=== PATIENT | female | born 1955 | race American Indian/Alaskan Native ===

== ENCOUNTER 2017-04-16 13:47 | Emergency (ER) | payer MEDICARE ==
[2017-04-16 13:47] VITALS: BMI 31.2
--- NOTE | 2017-04-16 14:47 | RAD ---
HISTORY: cough with blood streaked sputum COMPARISON: None available. TECHNIQUE: Chest PA and lateral FINDINGS: Examination limited by habitus. LUNGS: No focal consolidation. Please note that chest x-ray has limited sensitivity for the detection of pulmonary masses. PLEURA: No significant pleural effusion identified. No definite pneumothorax. CARDIOVASCULAR: Median sternotomy wires. Heart size appears within normal limits. Ectatic aorta. Prosthetic cardiac valve. OSSEOUS STRUCTURES: Degenerative changes. VISUALIZED UPPER ABDOMEN: Unremarkable. OTHER FINDINGS: None. IMPRESSION: No focal consolidation, significant pleural effusion, or definite pneumothorax identified.
[2017-04-16 14:57] LABS: BASO % 0.6 % (0.0-2.0); EOS % 0.4 % (0.0-4.0); HEMATOCRIT 38.1 % (34.0-47.0); LYMPH # 1.4 K/uL (1.0-4.3); LYMPH % 25.2 % (20.0-40.0); MEAN CELL VOLUME 88.1 fL (81.0-99.0); MEAN CORPUSCULAR HEMOGLOBIN 29.3 pg (27.0-31.0); MEAN CORPUSCULAR HGB CONC 33.2 g/dL (33.0-37.0); MEAN PLATELET VOLUME 8.8 fL (7.2-11.7); MONO # 0.6 K/uL (0.0-0.8); NRBC % 0.1 % (0.0-2.0); RED CELL DISTRIBUTION WIDTH 14.9 % (11.5-14.5); WHITE BLOOD COUNT 5.5 K/uL (4.8-10.8)
[2017-04-16 15:05] LABS: CHLORIDE 100 mmol/L (98-107); POTASSIUM 3.6 mmol/L (3.6-5.2); SODIUM 137 mmol/L (132-148)
[2017-04-16 15:07] LABS: BILIRUBIN,TOTAL 0.6 mg/dL (0.2-1.3); CARBON DIOXIDE 28 mmol/L (22-30); GFR AFRICAN-AMERICAN > 60
[2017-04-16 15:08] LABS: ALB/GLOB RATIO 1.4 (1.0-2.1); ALKALINE PHOSPHATASE 56 U/L (38-126); ALT/SGPT 22 U/L (9-52); AST/SGOT 21 U/L (14-36); BLOOD UREA NITROGEN 7 mg/dL (7-17); CALCIUM 8.9 mg/dl (8.6-10.4); GLUCOSE,RANDOM 94 mg/dL (65-105)
[2017-04-16 15:22] LABS: INR 1.1
[2017-04-16 15:40] LABS: CHLORIDE 101 mmol/L (98-107)
[2017-04-16 15:41] LABS: POTASSIUM 3.4 mmol/L (3.6-5.2); SODIUM 138 mmol/L (132-148)
[2017-04-16 15:43] LABS: GFR AFRICAN-AMERICAN > 60
[2017-04-16 15:44] LABS: ALB/GLOB RATIO 1.2 (1.0-2.1); ALKALINE PHOSPHATASE 55 U/L (38-126); ALT/SGPT 25 U/L (9-52); AST/SGOT 20 U/L (14-36); BILIRUBIN,TOTAL 0.5 mg/dL (0.2-1.3); BLOOD UREA NITROGEN 7 mg/dL (7-17); CALCIUM 8.5 mg/dl (8.6-10.4); CARBON DIOXIDE 28 mmol/L (22-30); GLUCOSE,RANDOM 90 mg/dL (65-105); TOTAL PROTEIN 7.5 g/dL (6.3-8.3)
--- NOTE | 2017-04-16 16:21 | C.PDOC ---
History Of Present Illness 61-year-old female presents to the emergency department with complaints of cough since yesterday, sputum tinged with blood. She denies fever, chest pain, shortness of breath, abdominal pain, Hx of pneumonia, sick contacts or recent overseas travel. Time Seen by Provider: 04/16/17 14:10 Chief Complaint (Nursing): Cough, Cold, Congestion History Per: Patient History/Exam Limitations: no limitations Onset/Duration Of Symptoms: Days Current Symptoms Are (Timing): Still Present Severity: Mild Past Medical History Reviewed: Historical Data, Nursing Documentation, Vital Signs Vital Signs: Last Vital Signs Temp 98.1 F 04/16/17 16:44 Pulse 68 04/16/17 16:44 Resp 18 04/16/17 16:44 BP 110/68 04/16/17 16:44 Pulse Ox 100 04/16/17 16:44 - Medical History PMH: HTN, Hypercholesterolemia Family History: States: No Known Family Hx - Social History Hx Tobacco Use: Yes Hx Alcohol Use: No Hx Substance Use: No - Immunization History Hx Tetanus Toxoid Vaccination: No Hx Influenza Vaccination: No Hx Pneumococcal Vaccination: No Review Of Systems Except As Marked, All Systems Reviewed And Found Negative. Constitutional: Negative for: Fever, Chills Cardiovascular: Negative for: Chest Pain, Palpitations Respiratory: Positive for: Cough, Hemoptysis, Sputum. Negative for: Shortness of Breath Gastrointestinal: Negative for: Nausea, Vomiting, Abdominal Pain, Diarrhea Musculoskeletal: Negative for: Back Pain Neurological: Negative for: Weakness, Numbness Physical Exam - Physical Exam Appears: Well, Non-toxic, No Acute Distress, Other (speaking in full sentences) Skin: Warm, Dry, No Rash Head: Normacephalic Nose: Normal, No Epistaxis Oral Mucosa: Moist Throat: Normal, No Erythema, No Exudate, No Drooling, Other (no blood visualized in oropharynx) Cardiovascular: Rhythm Regular Respiratory: Normal Breath Sounds, No Rales, No Rhonchi, No Wheezing Gastrointestinal/Abdominal: Normal Exam, Bowel Sounds, Soft, No Tenderness Extremity: Normal ROM Neurological/Psych: Oriented x3 ED Course And Treatment - Laboratory Results Result Diagrams: 04/16/17 14:51 04/16/17 15:10 O2 Sat by Pulse Oximetry: 99 (RA) Pulse Ox Interpretation: Normal - Radiology CXR: Interpreted by Me, Viewed By Me (no infiltrates/effusions) Progress Note: Bloodwork, CXR ordered and reviewed. Reevaluation Time: 16:40 Reassessment Condition: Improved (On reassessment, patient is resting comfortably, in no pain/distress. Blood work and CXR WNL. Patient reassurred and instructed to follow up with PMD/clinic in 1-2 days. Vitals are WNL, and patient is well appearing, and comfortable with plan.) Disposition Counseled Patient/Family Regarding: Studies Performed, Diagnosis, Need For Followup - Disposition Referrals: [facility] [Outside] Disposition: HOME/ ROUTINE Disposition Time: 16:40 Condition: STABLE Additional Instructions: FOLLOW UP WITH YOUR DOCTOR/CLINIC IN 1-2 DAYS RETURN TO ER IF YOU HAVE ANY CONCERNING SYMPTOMS Prescriptions: Naproxen [Naprosyn Tab] 375 mg PO BID PRN #15 tab PRN Reason: pain Forms: General Discharge Instructions Print Language: PORTUGUESE - Clinical Impression Clinical Impression: Blood-tinged sputum - Scribe Statement The provider has reviewed the documentation as recorded by the Teodoro Locke All medical record entries made by the Teodoro were at my direction and personally dictated by me. I have reviewed the chart and agree that the record accurately reflects my personal performance of the history, physical exam, medical decision making, and the department course for this patient. I have also personally directed, reviewed, and agree with the discharge instructions and disposition.
[2017-04-16] MEDS ORDERED: Naproxen 550 mg Tab PO STA (16:40)
[2017-04-16 16:46] VITALS: BP 110/68; PULSE 68; RESP 18; TEMP 98.1
[2017-04-16] MEDS ORDERED: Naproxen 550 mg Tab PO ONE (16:48)
[2017-04-21 18:47] VITALS: O2SAT 99
== END 2017-04-16 17:07 | disposition home or self-care (01) ==
LOC: C.ER 13:47
DX: R04.2 Hemoptysis (principal)

== ENCOUNTER 2017-04-30 16:44 | Emergency (ER) | payer MEDICARE ==
[2017-04-30 16:55] VITALS: BMI 31.6
[2017-04-30 17:02] VITALS: TEMP 98.2
--- NOTE | 2017-04-30 18:19 | C.PDOC ---
History Of Present Illness 61 y/o female presents to ED with complaints of pain and swelling to left foot. Patient states she dropped a heavy chair on her foot several days ago. Denies any other injury, weakness, or numbness. Time Seen by Provider: 04/30/17 18:08 Chief Complaint (Nursing): Lower Extremity Problem/Injury History Per: Patient History/Exam Limitations: no limitations Onset/Duration Of Symptoms: Days Current Symptoms Are (Timing): Still Present Recent travel outside of the [place]: No Past Medical History Reviewed: Historical Data, Nursing Documentation, Vital Signs Vital Signs: Last Vital Signs Temp 98.2 F 04/30/17 19:31 Pulse 71 04/30/17 19:31 Resp 18 04/30/17 19:31 BP 135/78 04/30/17 19:31 Pulse Ox 98 04/30/17 19:31 - Medical History PMH: HTN, Hypercholesterolemia Family History: States: Unknown Family Hx - Social History Hx Tobacco Use: Yes Hx Alcohol Use: No Hx Substance Use: No - Immunization History Hx Tetanus Toxoid Vaccination: No Hx Influenza Vaccination: No Hx Pneumococcal Vaccination: No Review Of Systems Except As Marked, All Systems Reviewed And Found Negative. Constitutional: Negative for: Fever, Chills Musculoskeletal: Positive for: Foot Pain (Left) Skin: Negative for: Rash Neurological: Negative for: Weakness, Numbness Physical Exam - Physical Exam Appears: Non-toxic, No Acute Distress Skin: Normal Color, Warm, Dry Head: Atraumatic, Normacephalic Extremity: Normal ROM, Tenderness (dorsal aspect of left foot), No Pedal Edema, No Calf Tenderness, Capillary Refill (< 2 sec. ), No Deformity, Swelling ( dorsal left foot), Other (Knee intact) Extremity: Bilateral: Normal Color And Temperature Pulses: Left Dorsalis Pedis: Normal, Right Dorsalis Pedis: Normal Neurological/Psych: Oriented x3, Normal Motor, Normal Sensation Gait: Steady ED Course And Treatment O2 Sat by Pulse Oximetry: 100 (RA) Pulse Ox Interpretation: Normal - Other Rad foot left X-Ray: Interpreted by Me, Viewed By Me Interpretation: no fx noted Progress Note: Treated with Motrin. Left foot x-ray ordered and reviewed, negative for fx. Rafa wrap applied in ER and ortho shoe given. On reassessment, patient reports improvement of pain, and is ambulatory in ED. Advised follow up with podiatry clinic for further evaluation. Disposition Counseled Patient/Family Regarding: Diagnosis, Need For Followup - Disposition Referrals: Podiatry Clinic [Outside] Disposition: HOME/ ROUTINE Disposition Time: 19:16 Condition: STABLE Additional Instructions: Wear rafa bandage during awake hours to decrease swelling. keep foot elevated whenever possible. Wear ortho shoe for comfort. follow up in podiatry clinic. Tylenol or motrin for pain. Instructions: Foot Contusion (ED) Forms: General Discharge Instructions Print Language: MOHAWK - Clinical Impression Clinical Impression: Contusion, foot - PA / HOUSE COORDINATOR / Resident Statement MD/DO has reviewed & agrees with the documentation as recorded. - Scribe Statement The provider has reviewed the documentation as recorded by the Raviibmarcos Mata All medical record entries made by the Teodoro were at my direction and personally dictated by me. I have reviewed the chart and agree that the record accurately reflects my personal performance of the history, physical exam, medical decision making, and the department course for this patient. I have also personally directed, reviewed, and agree with the discharge instructions and disposition.
[2017-04-30 19:34] VITALS: BP 135/78; PULSE 71; RESP 18
--- NOTE | 2017-05-01 11:01 | RAD ---
PROCEDURE: Left Foot Radiographs. HISTORY: dropped chair on foot, pain lateral foot COMPARISON: None available. FINDINGS: BONES: No acute displaced fracture. JOINTS: No dislocation. Widened space between the proximal and mid 5th phalanx appears chronic or postsurgical. Correlate clinically. SOFT TISSUES: Soft tissue swelling. No evidence of radiopaque foreign body. OTHER FINDINGS: None. IMPRESSION: Soft tissue swelling. No acute displaced fracture or dislocation identified. If symptoms persist, or if there is continued clinical concern, x-ray follow-up in 7-10 days should be considered.
[2017-05-01 13:41] VITALS: O2SAT 100
== END 2017-04-30 19:33 | disposition home or self-care (01) ==
LOC: C.ER 16:44
DX: S90.32XA Contusion of left foot, initial encounter (principal); W22.8XXA Striking against or struck by other objects, initial encounter